=== PATIENT | female | born 1980 | race Caucasian/White ===

== ENCOUNTER 2017-06-17 11:45 | Emergency (ER) | payer SELFPAY ==
[2017-06-17 11:50] VITALS: BP 132/85; BMI 23.3
--- NOTE | 2017-06-17 14:02 | DR.TOOTHHP ---
HPI - Time Seen Time seen: 14:05 - Primary Care Physician Primary Care Physician: natali - HPI Comment HPI Comment: MULTIPLE DENTAL CARIES WITH GUM DISEASE. - Complaints Chief Complaint Doctors Comments: TOOTH ACHE WORSE LAST NIGHT. LT JAW SWOLLEN AT [facility] . NO FEVER. Chief Complaint:: pt stated her lower left jaw has been hurting due to a toothache since last night. 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 - Family History History of Family Medical Conditions: No - Social History Does patient currently use any type of tobacco product: Yes Have you used tobacco products in the last 12 months: Yes Type of Tobacco Use: Cigarettes How many years tobacco product used: 15 Does any household member use tobacco: No Alcohol Use: None Do you use any recreational Drugs:: No Lives With: Family Lives Where: Home - infectious screening In the last 2 months have you had wt loss of >10#?: NO Have you had fever, night sweats or hemotysis?: No Have you traveled outside the country in the last 6 months?: No Isolation: Standard ROS - Review of Systems Constitutional: No Symptoms Reported Eyes: No Symptoms Reported ENTM: Loose Teeth. negative: Ear Pain, Nose Pain, Nose Congestion, Throat Pain , Ear Foreign Body Respiratoy: No Symptoms Reported Cardiovascular: No Symptoms Reported Gastrointestinal/Abdominal: No Symptoms Reported Genitourinary: No Symptoms Reported Neurological: No Symptoms Reported Musculoskeletal: No Symptoms Reported, Other (RT JAW SWOLLEN AND TENDER.) Integumentary: No Symptoms Reported Hematologic/Lymphatic: No Symptoms Reported Endocrine: No Symptoms Reported All Other Systems: Reviewed and Negative PE - Vital Signs Vitals: Temperature 98.6 F Pulse Rate 70 Respiratory Rate 18 Blood Pressure 132/85 O2 Sat by Pulse Oximetry 100 - General Limitations: No Limitations General Appearance: Alert - Head Head Exam: Normal Inspection - Eyes Eye exam: Normal Appearance - ENT ENT Exam: Normal External Ear Exam External Ear Exam: Normal External Inspection TM/Canal Exam: Bilateral Normal Nose Exam: Normal Nose Exam Mouth Exam: negative: Trismus Teeth Exam: Dental Caries, Dental Tenderness # (LOWER MOLARS RIGHT ) Throat Exam: negative: Tonsillar Erythema, Tonsillomegaly - Neck Neck Exam: Trachea Midline - Chest Chest Inspection: Symmetric Chest Wall Rise - Respiratory Respiratory Exam: Normal Lung Sounds Bilat Respiratory Exam: Bilateral Clear to Auscultation - Cardiovascular Cardiovascular Exam: Regular Rate, Normal Rhythm, Normal Heart Sounds - Abdominal Exam Abdominal Exam: Normal Bowel Sounds, Soft. negative: Tenderness - Extremities Extremities Exam: Normal Inspection - Back Back Exam: Normal Inspection - Neurologic Neurological Exam: Alert, Oriented X3 - Psychiatric Psychiatric Exam: Normal Affect, Normal Mood - Skin Skin Exam: Normal Color MDM - Additional information Additional Information Obtained From: Family - Differential diagnosis Differential Diagnosis: Other (GINGIVITIS, DENTAL PAIN.) Course - Treatment Treatment: SEE ORDERS. IM MEDS IN ED. - Education/Counseling Education/Counseling: Patient, Family, Education Educated On: Diagnosis, Needs for Follow Up - Diagnosis Discharge Problem: Pain, dental, Gingivitis, Dental abscess - Discharge Plan Disposition: 01 HOME, SELF-CARE Condition: Stable Prescriptions: Amoxicillin [Amoxil 875 mg] 875 mg PO Q12H #20 tab Ibuprofen [MOTRIN TAB 600 MG *] 600 mg PO TID PRN #20 tab PRN Reason: Pain/Inflammation Methylprednisolone Dosepak 4Mg [MEDROL DOSEPAK (4 mg tab x 21)] 1 shreya PO ONCE # 1 shreya - Follow ups/Referrals Follow ups/Referrals: GEMA CARLSON [Primary Care Provider] - 3 days - Instructions Instructions: Gingivitis, [id number], Dental Abscess, [id number] Additional Instructions: FOLLOW UP WITH DENTIST OF YOUR CHOICE. RETURN TO ED IF WORSE.
[2017-06-17] MEDS ORDERED: ROCEPHIN VIAL 1 GM IM ONE (14:10)
[2017-06-17] MEDS ORDERED: TORADOL 60 MG VIAL IM ONE (14:10)
[2017-06-17] MEDS ORDERED: ROCEPHIN VIAL 1 GM ONE (14:16)
[2017-06-17] MEDS ORDERED: TORADOL 60 MG VIAL ONE (14:16)
[2017-06-17] MEDS ORDERED: XYLOCAINE 1 % (PLAIN) ONE (14:17)
== END 2017-06-17 14:37 | disposition home or self-care (01) ==
LOC: ER 12:29
DX: K05.10 Chronic gingivitis, plaque induced (principal); K08.89 Other specified disorders of teeth and supporting structures; K04.7 Periapical abscess without sinus
CPT/HCPCS: 96372; 99282; J0696; J1885; J2001